=== PATIENT | female | born 1945 | race Caucasian/White ===

== ENCOUNTER → 2019-01-18 11:15 | Outpatient (CLI) | payer MEDICARE, OTHER, SELFPAY ==
[2019-01-18 12:10] LABS: Platelet Count 238 X10^3/uL (150-400)
[2019-01-18 12:20] LABS: INR 1.1 (0.9-1.3); Prothrombin Time 12.9 SECONDS (10.1-12.7)
== END ==
PROVIDERS: PCP Student in an Organized Health Care Education/Training Program; Visit Provider Student in an Organized Health Care Education/Training Program
DX: J90 Pleural effusion, not elsewhere classified (principal)
CPT/HCPCS: 36415; 85049; 85610

== ENCOUNTER → 2019-01-19 09:44 | Outpatient (CLI) | payer MEDICARE, OTHER, SELFPAY ==
--- NOTE | 2019-01-19 | DI.US.S_ITS ---
PROCEDURE: US THORACENTESIS INDICATIONS: LEFT PLEURAL EFFUSION TECHNIQUE: The indications, alternatives, benefits, risks, and complications of the procedure were explained to the patient. Written informed consent was obtained and placed in the chart. The chest was examined sonographically, and an appropriate site was chosen for thoracentesis. The skin was prepared and draped in the usual sterile fashion, and 1% lidocaine was infiltrated from the skin down through the pleural surface. A 19-gauge catheter-covered needle was then introduced into the pleural space, the catheter was advanced and the needle was withdrawn, and thereafter pleural fluid was aspirated. The catheter was then removed and a dressing was applied. COMPARISON: None. FINDINGS: Access site: Left hemithorax. Needle: One-Step centesis catheter with introducer needle. Fluid volume and description: 1350 cc of serosanguineous fluid Fluid sent for diagnostic testing: As requested Medications: 1% lidocaine for local anaesthesia. Complications: Postprocedural chest ray graft demonstrates small left apical pneumothorax. The patient is stable at this time and continued monitoring with followup chest radiographs pending. IMPRESSION: Successful ultrasound-guided thoracentesis. Dictated by: Asim Ovalle M.D. on 01/19/2019 at 11:48 Approved by: Asim Ovalle M.D. on 01/19/2019 at 11:49
--- NOTE | 2019-01-19 | DI.RAD.S_ITS ---
PROCEDURE: XR CHEST 1V INDICATIONS: post thoracentisis TECHNIQUE: One view of the chest was acquired. COMPARISON: [facility], CR, XR CHEST 1V, 01/19/2019, 11:05. [facility], CR, XR CHEST 1V, 01/19/2019, 12:23. FINDINGS: Surgical changes and devices: Sternotomy wires. Lungs and pleura: No new focal consolidation identified. Small left residual pleural effusion with adjacent atelectasis. Redemonstration of small left pneumothorax, with no definite interval change dating back to 2 prior chest radiographs dated earlier same day. Mediastinum: Mediastinal contours appear normal. Heart size is normal. Bones and chest wall: No suspicious bony lesions. Overlying soft tissues appear unremarkable. IMPRESSION: Small left pneumothorax with no definite interval change since 2 prior examinations earlier same day. The patient has remained asymptomatic during the entire duration of observation, and still reports no shortness of breath or chest pain. The patient was advised to seek emergent care and repeat chest radiograph if she develops shortness of breath, pain or other symptoms. The patient was also advised to avoid heavy exertion or physical labor for the next 3 days. The patient voiced understanding, agrees to the recommendations and all questions were answered. Dictated by: Asim Ovalle M.D. on 01/19/2019 at 15:20 Approved by: Asim Ovalle M.D. on 01/19/2019 at 15:28
--- NOTE | 2019-01-19 11:05 | DI.RAD.S_ITS ---
PROCEDURE: XR CHEST 1V INDICATIONS: POST THORASENTISIS TECHNIQUE: One view of the chest was acquired. COMPARISON: None. FINDINGS: Surgical changes and devices: Sternotomy wires. Lungs and pleura: There is trace residual left pleural fluid and adjacent atelectasis. Small left apical pneumothorax is seen. There is also mild left chest wall soft tissue gas Mediastinum: Mediastinal contours appear normal. Heart size is normal. Bones and chest wall: No suspicious bony lesions. Overlying soft tissues appear unremarkable. Lateral curvature of the spine and diffuse spondylitic changes. IMPRESSION: Small left apical pneumothorax, status post thoracentesis. At this time the patient is stable with mild cough, however no pain or shortness of breath. Continued monitored observation will be performed and a repeat chest radiograph in one hour is pending. Dictated by: Asim Ovalle M.D. on 01/19/2019 at 11:21 Approved by: Asim Ovalle M.D. on 01/19/2019 at 11:27
[2019-01-19 11:21] LABS: Body Fluid Red Blood Cells 2317 /uL; Body Fluid Tot Nucleated Cells 751 /uL
[2019-01-19 11:26] LABS: LDH Body Fluid 655 U/L; Total Protein Body Fluid 4.5 g/dL; Triglycerides Body Fluid 27 mg/dL
[2019-01-19 11:42] LABS: Body Fluid Appearance SLIGHTLY CLOUDY; Body Fluid Clotted? NO CLOTS PRESENT; Body Fluid Color YELLOW; Eosinophils Body Fluid 24 %; Mononuclear WBC Body Fluid 73 %; Other Cells Body Fluid 0 %; Polynuclear WBC Body Fluid 3 %
--- NOTE | 2019-01-19 12:30 | DI.RAD.S_ITS ---
PROCEDURE: XR CHEST 1V INDICATIONS: 1 HOUR POST THORACENTESIS TECHNIQUE: One view of the chest was acquired. COMPARISON: [facility], CR, XR CHEST 1V, 01/19/2019, 11:05. FINDINGS: Surgical changes and devices: Sternotomy wires. Lungs and pleura: Small residual left pleural effusion, and adjacent atelectasis. Redemonstration of small left pneumothorax which appears unchanged since earlier same day. No acute consolidation. There is mild left chest wall soft tissue gas as before. Mediastinum: Mediastinal contours appear normal. Heart size is normal. Bones and chest wall: No suspicious bony lesions. Overlying soft tissues appear unremarkable. IMPRESSION: Grossly unchanged small left apical pneumothorax. The patient remains in stable condition and a followup 2 hour interval chest radiograph is planned. Small residual left pleural effusion, status post thoracentesis. Dictated by: Asim Ovalle M.D. on 01/19/2019 at 12:37 Approved by: Asim Ovalle M.D. on 01/19/2019 at 12:40
== END ==
PROVIDERS: PCP Student in an Organized Health Care Education/Training Program; Visit Provider Student in an Organized Health Care Education/Training Program
DX: J90 Pleural effusion, not elsewhere classified (principal)
CPT/HCPCS: 32555; 71045; 83615; 84157; 84478; 87116; 89051

== ENCOUNTER → 2019-04-09 11:05 | Outpatient (CLI) | payer MEDICARE, OTHER, SELFPAY ==
--- NOTE | 2019-04-09 | DI.RAD.S_ITS ---
PROCEDURE: XR CHEST 1V INDICATIONS: POST THORACENTESIS CHEST TECHNIQUE: One view of the chest was acquired. COMPARISON: [facility], CR, XR CHEST 1V, 01/19/2019, 14:18. FINDINGS: Surgical changes and devices: Sternotomy wires Lungs and pleura: Mild left residual pleural fluid with adjacent atelectasis. No right pleural effusion seen. No pneumothorax identified. No new consolidation Mediastinum: Mediastinal contours appear normal. Heart size is normal. Bones and chest wall: No suspicious bony lesions. Scoliosis and scattered discogenic changes. Overlying soft tissues appear unremarkable. IMPRESSION: Small residual left pleural effusion with adjacent atelectasis. No pneumothorax. Dictated by: Asim Ovalle M.D. on 04/09/2019 at 15:44 Approved by: Asim Ovalle M.D. on 04/09/2019 at 15:45
--- NOTE | 2019-04-09 | DI.US.S_ITS ---
PROCEDURE: US THORACENTESIS INDICATIONS: PLEURAL EFFUSION TECHNIQUE: The indications, alternatives, benefits, risks, and complications of the procedure were explained to the patient. Written informed consent was obtained and placed in the chart. The chest was examined sonographically, and an appropriate site was chosen for thoracentesis. The skin was prepared and draped in the usual sterile fashion, and 1% lidocaine was infiltrated from the skin down through the pleural surface. A 19-gauge catheter-covered needle was then introduced into the pleural space, the catheter was advanced and the needle was withdrawn, and thereafter pleural fluid was aspirated. The catheter was then removed and a dressing was applied. COMPARISON: [facility], THORACENTESIS, 01/19/2019, 10:21. FINDINGS: Access site: Left hemithorax. Needle: One-Step centesis catheter with introducer needle. Fluid volume and description: 560 cc of serosanguineous fluid Fluid sent for diagnostic testing: As requested Medications: 1% lidocaine for local anaesthesia. Complications: None; post-procedural chest radiograph is pending to assess for pneumothorax. IMPRESSION: Successful ultrasound-guided thoracentesis. Dictated by: Asim Ovalle M.D. on 04/09/2019 at 16:34 Approved by: Asim Ovalle M.D. on 04/09/2019 at 16:34
--- NOTE | 2019-04-09 | PATH_ITS ---
Note [facility] Accession Number: [id number] TESTS RESULT FLAG UNITS REF RANGE LAB Clinician Provided Cytology Information No. of containers..01 Other (Miscellaneous) 01 L PLEURAL SPACE DIAGNOSIS: 02 L PLEURAL SPACE NEGATIVE FOR MALIGNANT CELLS. THIS INTERPRETATION INCLUDES EVALUATION OF A CELL BLOCK. Pathologist ICD10: 02 J90 02 Thierry Batres MD, PhD, Pathologist NPI- [id number] Chip Ying, Reimbursement Counselor ([facility]) 01 55 CC, RED, CLOUDY /LCS FLAG LEGEND: L-Low Normal,H-High Normal,LL-Alert Low,HH-Alert High <-Panic Low,>-Panic High,A-Abnormal,AA-Critical Abnormal Performed at: 01 =Z [facility] [address], [place] [address] Yossi Michelle MD, 02 [facility] [address] [place] [id number] Nila Patel MD, Specimen Comment: A courtesy copy of this report has been sent to Specimen Comment: [phone]. Performed at: 01 [facility] [address], [place], [place] [id number] MD Yossi Michelle MD Phone: [phone]
[2019-04-09 12:36] LABS: Platelet Count 254 X10^3/uL (150-400)
[2019-04-09 12:46] LABS: Erythrocyte Sedimentation Rate 14 MM/HR (0-20)
[2019-04-09 13:02] LABS: INR 1.1 (0.9-1.3); Prothrombin Time 13.3 SECONDS (10.1-12.7)
[2019-04-09 18:14] LABS: Total Protein Body Fluid 3.7 g/dL
[2019-04-09 18:24] LABS: Body Fluid Red Blood Cells 18530 /uL; Body Fluid Tot Nucleated Cells 858 /uL
[2019-04-09 18:41] LABS: Body Fluid Appearance HAZY; Body Fluid Clotted? NO CLOTS PRESENT; Body Fluid Color PINK; Eosinophils Body Fluid 0 %; Mononuclear WBC Body Fluid 98 %; Other Cells Body Fluid 0 %; Polynuclear WBC Body Fluid 2 %
== END ==
PROVIDERS: Family Provider Student in an Organized Health Care Education/Training Program; PCP Student in an Organized Health Care Education/Training Program; Visit Provider Internal Medicine Pulmonary Disease
DX: J90 Pleural effusion, not elsewhere classified (principal); J98.11 Atelectasis
CPT/HCPCS: 32555; 36415; 71045; 84157; 85049; 85610; 85651; 89051

== ENCOUNTER 2019-05-28 10:00 | Outpatient (RCR) | payer MEDICARE, OTHER, SELFPAY | END 2019-06-06 08:32 | disposition home or self-care (01) | LOC: CAR 10:00 | PROVIDERS: Family Provider Student in an Organized Health Care Education/Training Program; PCP Student in an Organized Health Care Education/Training Program; Visit Provider Student in an Organized Health Care Education/Training Program | DX: Z95.2 Presence of prosthetic heart valve (principal) | CPT/HCPCS: 93798 ==

== ENCOUNTER 2021-03-04 09:54 | Day surgery (SDC) | payer MEDICARE, OTHER, SELFPAY ==
--- NOTE | 2021-03-02 11:59 | PM.PREOP ---
Pre-operative Note COVID-19 COVID-19 status: Negative Interval Note History & Physical reviewed/Exam performed by Physician: Yes Changes to H&P: No
--- NOTE | 2021-03-02 12:00 | PM.OP.1 ---
Operative Date/Time/Diagnoses Date of procedure: 03/04/21 Time of procedure: 11:45 Procedure & Clinicians Procedure: Preoperative diagnoses: 1. Left nuclear sclerotic and cataract. 2. Astigmatism which she elects to be corrected with a toric intraocular lens implant. 3. Bovine heart valve 4. Sleep apnea 5. Hypertension 6. CHF 7. Bilateral dermatochalasis of the upper lids. Postoperative diagnoses: 1. Cataract removal with phacoemulsification with toric posterior chamber intraocular lens implant placed. Capsular dye used for better visibility. Procedure: Phacoemulsification with posterior chamber toric intraocular lens implant. Surgeon: Ann Vázquez MD Complications: None Specimen: None Implant: [id number] [place] 091 Blood loss: None Anesthesia: Retrobulbar with monitored standby Description of procedure: Patient presents with a complaint of decreased vision due to cataract which is affecting activities of daily living distance and near. The patient wants surgery to improve vision and astigmatism and uses a distance target. She understands the extra risk of surgery during the COVID-19 epidemic and desires to proceed. She has tested negative for active virus prior to the procedure. The patient was taken to the operating room and proparacaine drops placed. Indelible ink norman were placed at the 90 and 180 degree meridian. The patient was placed on the operating room table and given IV sedation. A retrobulbar block insert consisting of 6 cc of 2% xylocaine without epinephrine mixed half and half with 0.5% Marcaine with 1 cc of hyaluronidase added is placed between the medial and lateral 1/3 of the inferior orbital rim. The eye is manually massaged for 30 sec, prepped using Betadine solution, and draped in the usual sterile fashion. Temporal approach was made, a 1 mm side-port incision was made 90? from the proposed corneal wound. Phenylephrine 1.5% mixed with 1% xylocaine 0.2 cc was placed into the anterior chamber. An air bubble was placed in the capsular dye was placed for better visibility due to diffuse cortical spokes through the visual axis. Viscoat followed by Healon was then placed. A 2.6 mm clear incision with a 2.6 mm blade was placed at the 170 degree meridian. A 360 degree capsulorrhexis style capsulotomy was then performed with a cystitome needle on a Healon aided by the capsular dye. Hydrodelineation and hydrodissection were performed. The phacoemulsification unit is introduced, and sculpting used to groove the central lens. It is then removed in chopping mode. Epi nucleus is removed with epinuclear mode and irrigation aspiration was used to remove the peripheral cortex. The posterior capsule is polished. The intraocular lens is selected, inspected, power confirmed, and placed in the posterior chamber at the desired meridianof 091 degrees.. The pupil was not constricted. The wound was stromally hydrated and tested for leaks, there was none and it was left sutureless. Vigamox 0.1 cc was placed into the anterior chamber. Kenalog 0.2 cc was placed in the superior subconjunctival space. A drop of antibiotic and was placed and the eye was patched and shielded. The patient was stable and returned to the recovery room in excellent condition. Dictated by: Ann Vázquez MD Copy to: [facility] Same procedure as scheduled: Yes
[2021-03-04 10:18] VITALS: BP 119/74; PULSE 68; RESP 16; TEMP 36.1; O2SAT 100; BMI 29.9
[2021-03-04] MEDS: PROPARACAINE 0.5% OPHTH SOL 2 DROPS EYE-OP ×2 (10:18→12:30)
[2021-03-04] MEDS: CATARACT EYE COMPOUND (10 DROPS/SYRINGE) 3 DROPS EYE-OP ×3 (10:23→10:33)
[2021-03-04] MEDS: LIDOCAINE 2% 4 ML, BUPIVACAINE 0.5% (PF) 4 ML, HYALURONIDASE 150 UNIT INJ (12:39)
[2021-03-04] MEDS: CHONDROIDTIN/SOD HYALURONATE 1.05 ML SYRINGE INTRAOCULA (12:50)
[2021-03-04] MEDS: PHENYLEPHRINE/LIDOCAINE VIAL (OR) 0.2 ML EYE-OP (12:51)
[2021-03-04] MEDS: MOXIFLOXACIN INJ 4 MG/0.8 ML VIAL 0.5 MG EYE-OP (12:51)
[2021-03-04] MEDS: ERYTHROMYCIN OPHTH 1 GM OINT 1 APPLIC EYE-RIGHT (12:51)
[2021-03-04] MEDS: HYALURONATE SODIUM 10 MG/ML SYRINGE INJ (12:51)
[2021-03-04] MEDS: TRYPAN BLUE 0.5 ML SYRINGE INJ (12:52)
[2021-03-04] MEDS: TRIAMCINOLONE 50 MG/5 ML VIAL INJ (12:52)
[2021-03-04] MEDS: BALANCED SALT IRRIG SOLN NO.2 500 ML, EPINEPHrine 1 MG IRR (12:52)
[2021-03-04 13:24] VITALS: BP 120/79; PULSE 47; RESP 14; TEMP 36; O2SAT 100
[2021-03-04 13:36] VITALS: PULSE 64; O2SAT 93
== END 2021-03-04 13:36 | disposition home or self-care (01) ==
LOC: OR 09:58
PROVIDERS: Family Provider Student in an Organized Health Care Education/Training Program; PCP Student in an Organized Health Care Education/Training Program; Referring Provider Ophthalmology; Visit Provider Ophthalmology
PROC: (CPT 66984; principal; 2021-03-04 11:45)
DX: H52.202 Unspecified astigmatism, left eye (principal); H25.13 Age-related nuclear cataract, bilateral; H02.831 Dermatochalasis of right upper eyelid; H02.834 Dermatochalasis of left upper eyelid; H02.102 Unspecified ectropion of right lower eyelid; H02.105 Unspecified ectropion of left lower eyelid; I11.0 Hypertensive heart disease with heart failure; G47.30 Sleep apnea, unspecified; I50.9 Heart failure, unspecified; Z95.3 Presence of xenogenic heart valve
CPT/HCPCS: 66984; J0171; J2250; J2704; J3010; J3301; J3470; V2787

== ENCOUNTER 2021-03-25 11:54 | Day surgery (SDC) | payer MEDICARE, OTHER, SELFPAY ==
--- NOTE | 2021-03-24 19:40 | PM.PREOP ---
Pre-operative Note COVID-19 COVID-19 status: Negative Interval Note History & Physical reviewed/Exam performed by Physician: Yes Changes to H&P: No
--- NOTE | 2021-03-25 07:59 | PM.OP.1 ---
Operative Date/Time/Diagnoses Date of procedure: 03/25/21 Time of procedure: 12:45 Procedure & Clinicians Procedure: Preoperative diagnoses: 1. Left significant nuclear sclerotic and cortical cataract. 2. Hypertension 3. Aortic valve replacement. 4. Sleep apnea 5. History of carcinoma of the breast in situ. 6. Congestive heart failure. 7. Bilateral dermatochalasis the upper lids. Postoperative diagnoses: 1. Cataract removed by phacoemulsification with placement of posterior chamber intraocular lens. Capsular dye used. Procedure: Phacoemulsification with posterior chamber intraocular lens implant Surgeon: Ann Vázquez MD Complications: None Specimen: None Implant: DIBOO+19.0. Blood loss: None Anesthesia: Retrobulbar with monitored standby Description of procedure: Patient presents with a complaint of decreased vision due to cataract which is affecting activities of daily living. She has had successful right cataract surgery with a toric intra-ocular lens. She feels her left eye is blurry and has reduced distance vision. The patient wants surgery to improve vision. This eye has low astigmatism. She understands the extra risk of surgery during the COVID-19 epidemic and wishes to proceed. She is no longer on anticoagulation except for aspirin. She has tested negative for COVID-19 virus within 72 hours of the procedure. The patient was taken to the operating room and given IV sedation. A retrobulbar block consisting of 6 cc of 2% xylocaine without epinephrine mixed half and half with 0.5% Marcaine with 1 cc of hyaluronidase added is placed between the medial and lateral 1/3 of the inferior orbital rim. The eye is manually massaged for 30 sec, prepped using Betadine solution, and draped in the usual sterile fashion. Temporal approach was made, a 1 mm side-port incision was made 90? from the proposed clear corneal incision position. Phenylephrine 1.5% mixed with 1% xylocaine 0.2 cc was placed into the anterior chamber.Due to poor visibility from cortical spokes Visudyne capsular dye was placed into the anterior chamber to stain the capsule. Viscoat followed by Rene was then placed. A 2.6 mm clear incision with a 2.6 mm blade was placed. A 360 degree capsulorrhexis style capsulotomy was then performed with a cystitome needle on a Healon. Hydrodelineation and hydrodissection were performed. The phacoemulsification unit is introduced, and sculpting notice used to groove the central lens. It is then removed in chopping mode. Epi nucleus is removed with epinuclear mode and irrigation aspiration was used to remove the peripheral cortex. The posterior capsule is polished. The intraocular lens is selected, inspected, power confirmed, and placed in the posterior chamber. The wound was stromally hydrated and tested for leaks, there was none and it was left sutureless. Vigamox 0.1 cc was placed into the anterior chamber. Kenalog 0.2 cc was placed in the superior subconjunctival space. A drop of antibiotic and was placed and the eye was patched and shielded. The patient was stable and returned to the recovery room in excellent condition. Dictated by: Ann Vázquez MD Copy to: [facility] Same procedure as scheduled: Yes
[2021-03-25 12:28] VITALS: BP 101/66; PULSE 65; RESP 18; TEMP 36.5; O2SAT 98; BMI 29.9
[2021-03-25] MEDS: PROPARACAINE 0.5% OPHTH SOL 2 DROPS EYE-OP (12:30)
[2021-03-25] MEDS: CATARACT EYE COMPOUND (10 DROPS/SYRINGE) 3 DROPS EYE-OP (12:35)
[2021-03-25] MEDS: CHONDROIDTIN/SOD HYALURONATE 1.05 ML SYRINGE INTRAOCULA (14:09)
[2021-03-25] MEDS: HYALURONATE SODIUM 10 MG/ML SYRINGE INJ (14:09)
[2021-03-25] MEDS: ERYTHROMYCIN OPHTH 1 GM OINT 1 APPLIC EYE-LEFT (14:10)
[2021-03-25] MEDS: MOXIFLOXACIN INJ 4 MG/0.8 ML VIAL 0.5 MG EYE-OP (14:10)
[2021-03-25] MEDS: PHENYLEPHRINE/LIDOCAINE VIAL (OR) 0.2 ML EYE-OP (14:10)
[2021-03-25] MEDS: TRYPAN BLUE 0.5 ML SYRINGE INJ (14:11)
[2021-03-25] MEDS: TRIAMCINOLONE 50 MG/5 ML VIAL INJ (14:11)
[2021-03-25] MEDS: LIDOCAINE 2% 4 ML, BUPIVACAINE 0.5% (PF) 4 ML, HYALURONIDASE 150 UNIT INJ (14:12)
[2021-03-25] MEDS: BALANCED SALT IRRIG SOLN NO.2 500 ML, EPINEPHrine 1 MG IRR (14:12)
[2021-03-25 14:40] VITALS: BP 132/83; PULSE 54; RESP 18; TEMP 36.2; O2SAT 100
--- NOTE | 2021-03-25 14:54 | SUR.PHASEII ---
Pt had cup of coffee and juice and crackers and denies pain. Pt states she is ready to go home.
[2021-03-25 14:55] VITALS: BP 116/77; PULSE 52; RESP 18; O2SAT 100
== END 2021-03-25 15:05 | disposition home or self-care (01) ==
LOC: OR 11:56
PROVIDERS: Family Provider Student in an Organized Health Care Education/Training Program; PCP Student in an Organized Health Care Education/Training Program; Referring Provider Ophthalmology; Visit Provider Ophthalmology
PROC: (CPT 66984; principal; 2021-03-25 13:15)
DX: H25.812 Combined forms of age-related cataract, left eye (principal); I10 Essential (primary) hypertension; G47.30 Sleep apnea, unspecified; I50.9 Heart failure, unspecified; H02.834 Dermatochalasis of left upper eyelid; H02.831 Dermatochalasis of right upper eyelid
CPT/HCPCS: 66984; J0171; J2704; J3301; J3470

== ENCOUNTER → 2021-08-28 09:54 | Outpatient (CLI) | payer MEDICARE, OTHER, SELFPAY ==
[2021-08-28 10:46] LABS: COVID19 -Nasal RAPID Negative (Negative)
== END ==
PROVIDERS: Family Provider Student in an Organized Health Care Education/Training Program; PCP Student in an Organized Health Care Education/Training Program; Referring Provider Internal Medicine; Visit Provider Internal Medicine
DX: Z20.822 Contact with and (suspected) exposure to COVID-19 (principal)
CPT/HCPCS: 87635; C9803

== ENCOUNTER → 2021-08-28 11:59 | Outpatient (CLI) | payer MEDICARE, OTHER, SELFPAY ==
--- NOTE | 2021-09-03 09:16 | PM.PFT.1 ---
Pulmonary Function Test Referral & Results Date Patient Seen: 08/28/21 Requesting provider: Lucho Tucker Results: The spirometry demonstrates an FVC of 2.51 L which is 92% of predicted. The FEV1 was measured at 1.91 L which is 93% of predicted. The FEV1/FVC ratio was 76 which is 101% of predicted. Following the administration of bronchodilator there was no appreciable change to above normal numbers. Lung volumes show an SVC of 2.86 L which is 107% of predicted. The diffusing capacity was measured at 16.41 which is 71% of predicted. No hemoglobin value was provided, so no correction for potential anemia could be made, if appropriate. The maximum voluntary ventilation was normal Interpretation: This study demonstrates normal spirometry. Diffusing capacity is minimally reduced suggesting the possibility of disease at the capillary alveolar level, unless patient is anemic Clinical correlation suggested
== END ==
PROVIDERS: Family Provider Student in an Organized Health Care Education/Training Program; PCP Student in an Organized Health Care Education/Training Program; Referring Provider Student in an Organized Health Care Education/Training Program; Visit Provider Student in an Organized Health Care Education/Training Program
DX: R06.02 Shortness of breath (principal); Z20.822 Contact with and (suspected) exposure to COVID-19
CPT/HCPCS: 87635; 94060; 94726; 94729; C9803

== ENCOUNTER → 2021-12-29 08:12 | Outpatient (CLI) | payer MEDICARE, OTHER, SELFPAY ==
[2021-12-29 20:45] LABS: COVID19 - ORCAS (NP or Nasal) Negative (Negative)
== END ==
PROVIDERS: Family Provider Student in an Organized Health Care Education/Training Program; PCP Student in an Organized Health Care Education/Training Program; Visit Provider Family Medicine
DX: Z01.812 Encounter for preprocedural laboratory examination (principal)
CPT/HCPCS: C9803; U0003

== ENCOUNTER → 2022-01-18 09:16 | Outpatient (CLI) | payer MEDICARE, OTHER, SELFPAY ==
[2022-01-18 11:18] LABS: COVID19 -Nasal RAPID Negative (Negative)
== END ==
PROVIDERS: Family Provider Student in an Organized Health Care Education/Training Program; PCP Student in an Organized Health Care Education/Training Program; Visit Provider Family Medicine Sleep Medicine
DX: Z20.822 Contact with and (suspected) exposure to COVID-19 (principal)
CPT/HCPCS: 87635

== ENCOUNTER → 2022-01-18 15:07 | Outpatient (CLI) | payer MEDICARE, OTHER, SELFPAY ==
--- NOTE | 2022-01-18 16:38 | PM.TREADMILL ---
Cardiac Stress Test Report Referral & Results Indication: shortness of breath Rest ECG: sinus arrythmia with non-specific st changes Procedure Note: treadmill stress test Impression: standard miguel protocol: 6:05, mets 7.0, ALONZO -11%, Good exercise capacity. Normal BP response, max HR 124 (88% of max HR achieved), resting ECG- sinus arrythmia with non specific ST changes, [address] depression in leads II, III, aVF, [address] depression in leads V3-V5, [address] depression in lead v6 that resolved in recovery. Patient denied any chest discomfort. Clint HARLEY Please note: Actual ECG tracings can be found in the PACS system.
--- NOTE | 2022-01-20 05:52 | DI.NM.S_ITS ---
PROCEDURE PERFORMED: Exercise treadmill stress test without imaging. DATE OF SERVICE: January 18, 2022. ORDERING PROVIDER: Dr. Lemuel Jordan. INDICATIONS: The patient is a 76-year-old female status post aortic valve replacement for a bicuspid aortic valve and recent paroxysmal supraventricular tachycardia with associated dyspnea. EXERCISE TREADMILL TESTIN. The patient was able to exercise for 6 minutes, 5 seconds on a standard Rigo protocol suggesting good exercise capacity with a ALONZO of -11%, achieving 7.0 METs. 2. She had a normal heart rate and blood pressure response to exercise with a resting heart rate of 76 bpm, increasing to a maximum of 128 bpm (88% of her predicted maximum). 3. She had no chest pain or other anginal symptoms. 4. Her resting ECG showed sinus arrhythmia versus sinus rhythm with a competing ectopic atrial rhythm, and nonspecific ST-segment and T-wave abnormalities in inferolateral leads. With exercise, these ST and T-wave abnormalities become accentuated but remain nonspecific because of the baseline abnormality. She had occasional PACs with exercise but no complex ectopy with stress, although had frequent PACs return in recovery with a 6-beat run of SVT at 120 bpm in recovery. IMPRESSION: 1. Probable normal exercise stress test for ischemia with nonspecific resting ST and T wave abnormalities that become accentuated with exercise. If there is significant clinical concern for ischemic heart disease, consider a stress imaging study. 2. Good exercise capacity without angina. She had PACs and possible intermittent ectopic atrial rhythm at rest but no provocation of increased atrial ectopy with exercise, although had frequent PACs and brief SVT in recovery. OwenAnn - ENRIQUE/louise/ENRIQUE doc#: [id number]/job#: [id number] dd: 01/19/2022 17:02:00 dt: 01/20/2022 05:26:00 DICTATING MD/COPIES TO: Fredrick Nation MD; Lemuel Jordan MD COPIES MNE: WENDI;
== END ==
PROVIDERS: Family Provider Student in an Organized Health Care Education/Training Program; PCP Student in an Organized Health Care Education/Training Program; Referring Provider Internal Medicine Cardiovascular Disease; Visit Provider Internal Medicine Cardiovascular Disease
DX: I47.1 Supraventricular tachycardia (principal); R06.02 Shortness of breath; I10 Essential (primary) hypertension; Z20.822 Contact with and (suspected) exposure to COVID-19
CPT/HCPCS: 87635; 93017; C9803

== ENCOUNTER 2022-12-22 10:05 | Day surgery (SDC) | payer MEDICARE, OTHER, SELFPAY ==
--- NOTE | 2022-12-21 18:36 | PM.PREOP ---
Pre-operative Note COVID-19 COVID-19 status: Not tested Criteria for continued procedure: Expected advancement of disease process, Possibility delay results in more complex future surgery or treatment, Increased loss of function, Continuing or worsening of significant or severe pain, Delay expected to result in less-positive ultimate med/surg outcome and Non-surgical alternatives not available or appropriate per current SOC Interval Note History & Physical reviewed/Exam performed by Physician: Yes Changes to H&P: No
--- NOTE | 2022-12-21 18:36 | PM.OP.1 ---
Operative Date/Time/Diagnoses Date of procedure: 12/22/22 Time of procedure: 11:15 Procedure & Clinicians Procedure: Preoperative diagnoses: 1. 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 Sleep apnea 5. Aortic valve replacement, takes daily aspirin 6. Anxiety 7. History of breast cancer in situ Postoperative diagnoses: 1. Bilateral upper lid dermatochalasis treated with blepharoplasty 2. Status post ectropion repair 3. Punctal malrotation with punctal stenosis. Procedure: Bilateral upper blepharoplasty for functional symptoms. Bilateral lower lid functional ectropion repair. Surgeon: Ann Vázquez MD Complications: none Specimen: None Blood loss: Less than 3 mL Anesthesia: Local infiltration with monitored standby. Indications: Bilateral upper lids obstructing superior vision. Preoperative external photographs taken and loss of vision to within 2 mm of marginal light reflex. Functional surgery. Bilateral lower lid laxity with exposure symptoms and malrotated puncta. Patient presents with excessive irritation and tearing from exposure due to bilateral lower lid laxity malposition the of the lacrimal puncta which were also closed. The patient has failed conservative measures including lubrication and antibiotic ointment and desires surgery to improve these symptoms. She is on aspirin anticoagulation due to the presence of an aortic heart valve. She stop for 7 days prior to surgery. She does not currently have a heart murmur. Her eyelid laxity is associated with floppy lid syndrome in the presence of sleep apnea. She requires both functional upper lid blepharoplasty and functional ectropion repair to alleviate the symptoms of laxity causing irritation blurred vision and tearing. Procedure: In the preoperative holding area the amount skin and subcutaneous tissue to be removed was marked with indelible ink. The contours were carefully checked for symmetry and planned procedure discussed with the patient. The patient was taken to the operating room. IV sedation was given. Proparacaine drops were placed in both eyes for comfort. Local infiltration of anesthetic 2.5 cc into each upper lid and lateral canthus bilaterally, consisting of 1% xylocaine with epinephrine, normal saline and 1 cc hyluronidase was placed. This was then supplemented with full strength 2% xylocaine with epinephrine, 0.5% bupivacaine, and 1 cc hyalurondase. The face was prepped in an open manner. Attention was placed to the right upper lid. Using the previous norman a number 15. Bard-Inder blade was used to incise a skin muscle flap. The flap was lifted and removed. Cautery was applied as needed. Contouring of the muscle belly was also performed. Exploration of the nasal and preoperneurotic fat pads were performed removal and contouring with hemostat and scissors as well as cautery were performed. The lid was then closed with running and interrupted 6 0 Vicryl sutures. Attention was placed to the right lower lid. Attention was placed to the lateral canthus. A 15. Bard-Inder blade was used to make an incision for 1 cm. The periosteum was exposed. Cautery was used as needed. The inferior canthal tendon was lysed with scissors. A tarsal strip was formed with clearance of the anterior and posterior lamella and any exposed lashes. Minimal shortening was performed. The strip was then transected with 5.0 Mersilene type suture which was placed double-armed through the periosteum and tied with multiple knots at the orbital rim. The outer tarsus and lid was then closed with 6 0 interrupted sutures. The procedure was repeated on the left side in identical fashion. There was minimal bleeding. The patient returned to the recovery room in good condition. Sutures will be removed in the office in approximately 10 days. Same procedure was repeated for the left upper lid and lower lid. The Betadine was removed. Maxitrol ointment was placed to suture line. She returned to recovery room in stable condition. Instructions for postoperative cold packs were reviewed. Ann Vázquez MD. Same procedure as scheduled: Yes
[2022-12-22 10:55] VITALS: BP 107/73; PULSE 66; RESP 16; TEMP 36.3; O2SAT 97; BMI 31.1
[2022-12-22] MEDS: LACTATED RINGERS 1,000 ML 42 ML IV (11:39)
[2022-12-22] MEDS: PROPARACAINE 0.5% OPHTH SOL 2 DROPS EYE-BOTH (11:42)
[2022-12-22] MEDS: HYALURONIDASE 150 UNIT/ML VIAL (AMPHADASE) INJ (11:51)
[2022-12-22] MEDS: LIDOCAINE 2% W/EPI INJ 20 ML INJ (11:51)
[2022-12-22] MEDS: NEOMYCIN/POLY/DEX OPHTH OINT 1 APPLIC EYE-BOTH (12:16)
[2022-12-22 14:00] VITALS: BP 117/78; PULSE 65; RESP 18; TEMP 36.3; O2SAT 100
== END 2022-12-22 14:05 | disposition home or self-care (01) ==
LOC: OR 10:06
PROVIDERS: Family Provider Student in an Organized Health Care Education/Training Program; PCP Student in an Organized Health Care Education/Training Program; Referring Provider Ophthalmology; Visit Provider Ophthalmology
PROC: (CPT 67917; principal; 2022-12-22 11:15)
PROC: (CPT 67917; 2022-12-22 11:15)
DX: H02.834 Dermatochalasis of left upper eyelid (principal); H02.831 Dermatochalasis of right upper eyelid; H02.102 Unspecified ectropion of right lower eyelid; H02.105 Unspecified ectropion of left lower eyelid; G47.30 Sleep apnea, unspecified; Z95.5 Presence of coronary angioplasty implant and graft
CPT/HCPCS: 67917; 15823; J2250; J2704; J3470

== ENCOUNTER 2024-05-28 12:10 | Day surgery (SDC) | payer MEDICARE, OTHER, SELFPAY ==
[2024-05-28] VITALS (8 sets, daily range): BP systolic 100–118; BP diastolic 59–80; PULSE 47–69; RESP 10–16; TEMP 35.9–36.9; O2SAT 97–100
--- NOTE | 2024-05-28 | PATH_ITS ---
[facility] Accession Number: [id number] No. of containers..01 Tissue . 01 Material submitted: . endometrium - ENDOMETRIAL CURETTINGS . 01 Diagnosis: ENDOMETRIUM, CURETTINGS: Endometrial adenocarcinoma, endometrioid type, FIGO grade 1. [facility] 05/30/2024 1121 Local . 01 Comment: As part of routine quality manager, this case was also reviewed by Dr. Thierry Marks, who agrees with the interpretation. . The findings were called to Ms Man, charge nurse to on 05/30/20[address] Rosado. . 01 Electronically signed: . Marilyn Rosado MD, Pathologist NPI- [id number] . 01 Gross description: . ENDOMETRIAL CURETTINGS: Received in formalin are minute fragments of mucoid and hemorrhagic material measuring 2.5 x 2.5 x 0.2 cm in aggregate. Submitted in toto in 1 cassette. /KEITH 05/29/2024 0134 Local . 01 Pathologist provided ICD-10: C54.1 . 01 CPT . 254884 Specimen Comment: A courtesy copy of this report has been sent to [facility] Pathology Performed at: [address] [facility] [address] [id number], [place], [place] [id number] MD Yossi Michelle MD Phone: [phone]
[2024-05-28] MEDS: LACTATED RINGERS 1,000 ML 42 ML IV (12:35)
[2024-05-28] MEDS: ACETAMINOPHEN 325 MG TABLET 975 MG PO (12:36)
--- NOTE | 2024-05-28 12:59 | P.HPOB_ITS ---
History of Present Illness History of Present Illness Reason for admission: vaginal bleeding (postmenopausal ) Narrative: Ann Weaver is a 79 year old nulliparous postmenopausal female who presented to office 04/24/24 for evaluation of acute on chronic abnormal vaginal discharge with recent isolated PMB. Office US was significant for fluid collection within lower uterine segment with area of irregularity suggestive of poylp. Given history patient was counseled on recommendation for definitive surgical evaluation with hysteroscopy D&C and presents to facility today for scheduled procedure. She denies any further PMB, notes persistent abnormal discharge. Denies significant changes in personal or family history since time of last encounter. Affirms desire to proceed with procedure as scheduled. [facility] [place] Medical History (Updated 05/23/24 @ 10:32 by Lia Reyes RN) Post pericardiotomy syndrome PSVT (paroxysmal supraventricular tachycardia) Abnormal vaginal fluids Postmenopausal bleeding Cataract Hyperlipidemia Insomnia Obesity (BMI 30-39.9) Hypertension Anxiety Snoring Obstructive sleep apnea of adult Surgical History H/O right wrist surgery H/O breast surgery (~1999) History of aortic valve replacement Social History (System 01/16/19 @ 10:34 by Rosa Isela De Santiago) household members: spouse Smoking Status: Never smoker alcohol intake: current Meds Home Medications and Allergies Home Medications Medication Instructions Recorded Confirmed Type aspirin 81 mg tablet,delayed 81 mg PO DAILY 06/06/19 05/28/24 History release (Adult Low Dose Aspirin) atorvastatin 20 mg tablet 20 mg PO DAILY 06/06/19 05/28/24 History citalopram 10 mg tablet 10 mg PO DAILY 06/06/19 05/28/24 History lisinopril 2.5 mg tablet 2.5 mg PO DAILY 06/06/19 05/28/24 History hydrochlorothiazide 25 mg tablet 25 mg PO DAILY 03/25/21 05/28/24 History metoprolol succinate 50 mg 50 mg PO BID 05/04/22 05/28/24 History tablet,extended release 24 hr Allergies Allergy/AdvReac Type Severity Reaction Status Date / Time warfarin Allergy Intermediate Rash Verified 05/28/24 12:37 Review of Systems Review of Systems ROS: Yes All systems reviewed with the patient and are negative except as otherwise documented Exam Vital Signs (past 8 hours): reviewed, wnl Const General: cooperative, comfortable and No acute distress Nutritional Appearance: obese Orientation: alert, awake and oriented x3 Limitations: mental status not altered Other: deferred per shared decision making with patient Neuro General: patient alert, patient awake and patient oriented x3 Extrem General: normal to inspection Psych Mental Status: mental status grossly normal Judgment: judgment good Assessment & Plan Assessment and plan (1) Postmenopausal bleeding: Status: Acute (2) Abnormal vaginal fluids: Status: Acute Plan proceed to OR for procedure as scheduled Time-Based Coding :: [TOTAL MINUTES] spent with patient and on the chart (including review of chart, obtaining history, exam, reviewing outside data, placing orders, documenting exam and treatment plan, and counseling patient) on [DATE].
--- NOTE | 2024-05-28 13:02 | PM.PREOP ---
Pre-operative Note Interval Note History & Physical reviewed/Exam performed by Physician: Yes Changes to H&P: No H&P completed within 30 days and has changed as indicated here:: 05/28/24 ASA Class (for procedural sedation): II
--- NOTE | 2024-05-28 13:40 | PM.OP.1 ---
Operative Date/Time/Diagnoses Date of procedure: 05/28/24 Time of procedure: 13:40 Pre-op diagnosis: postmenopausal bleeding, abnormal vaginal fluids Post-op diagnosis: same Procedure & Clinicians Procedure: hysteroscopy, dilation and curettage Same procedure as scheduled: Yes Indications: acute on chronic abnormal vaginal discharge, isolated postmenopausal bleeding with abnormal ultrasound in office Surgeon: Lina Cintron Click Yes if Unassisted: No Anesthesia Type: General Operative Notes Findings: normal external female genitalia, perineum, anus and urethra atrophic cervix, pustular drainage approx 3cc with uterine sound/opening of internal cervical os atrophic appearing endometrium, bilateral ostia visualized without distinct poylp Closure Type: not applicable Specimen(s): other (endometrial curettings ) Estimated Blood Loss (mL): 10 Procedure in detail: Pt was taken to the operating room, transferred to OR table and anesthesia was induced with placement of LMA.? Pt had her legs placed in Harshal stirrups and an exam under anesthesia was performed. The patient was prepped and draped in a sterile fashion.? A time out was performed. ?The bladder was emptied via straight catheter in sterile fashion.? A sterile speculum was inserted into the vagina.? The cervix was visualized and grasped anteriorly using a single tooth tenaculum.? The uterus sounded to 7cm and the cervical os was serially dilated using Arreguin dilators up to 17f to allow for passage of the hysteroscope.? The 0 degree myosure hysteroscope was then inserted into the uterus with findings as noted.? The hysteroscope was removed and the uterus was sharply curetted until a gritty texture was noted throughout.? The tenaculum was removed and hemostasis was noted at insertion sites.? The speculum was removed and hemostasis was again noted to be excellent.? The patient then had her legs taken out of stirrups.? The patient tolerated the procedure well and without difficulty.? The patient was awakened from anesthesia and taken to PACU in stable condition. Complications: none Post-operative Condition: stable Disposition: PACU Plan for aftercare: discharge to home, routine postoperative f/u in office
== END 2024-05-28 14:45 | disposition home or self-care (01) ==
PROVIDERS: Family Provider Student in an Organized Health Care Education/Training Program; PCP Student in an Organized Health Care Education/Training Program; Referring Provider Obstetrics & Gynecology; Visit Provider Obstetrics & Gynecology
PROC: 0UDB8ZZ Extraction of Endometrium, Via Natural or Artificial Opening Endoscopic (ICD-10-PCS; CPT 58558; principal; 2024-05-28 13:30)
DX: C54.1 Malignant neoplasm of endometrium (principal)
CPT/HCPCS: 58558; J2405; J2704; J3010